=== PATIENT | female | born 1975 | race Caucasian/White ===

== ENCOUNTER 2019-11-09 08:33 | Emergency (ER) | payer BC ==
--- NOTE | 2019-11-09 08:43 | ED ---
GI/ HPI - HPI Summary HPI Summary: 44 year old F arriving via private car to [facility] complains of worsening intermittent blood in stools and intermittent lower abdominal cramping x1 month. She states her stools are more loose and narrow than usual. This morning , patient had bowel movement that had "chunks of blood." She states she usually has lower left sided abdominal cramping when she has bowel movements. No abdominal pain currently. She notes left sided back pain which is chronic. She has had similar symptoms in the past but only occasionally. She has never been seen by GI. She denies fever, chills, nausea/vomiting/diarrhea, constipation. The patient rates the pain 4/10 in severity. Symptoms aggravated by nothing. Symptoms alleviated by nothing. Medications reviewed. Not on anticoagulants. Allergies noted. FHx diverticulosis. - History of Current Complaint Chief Complaint: EDGIBleed Time Seen by Provider: 11/09/19 08:37 Stated Complaint: ABD PAIN , BLOOD IN STOOL Hx Obtained From: Patient Onset/Duration: Started Weeks Ago - 4, Still Present, Worse Since - this morning Timing: Intermittent Current Severity: Moderate Pain Intensity: 4 Pain Characteristics: Cramping Associated Signs and Symptoms: Positive: Negative - fever, chills, nausea/ vomiting/diarrhea, constipation, Abdominal Pain Aggravating Factor(s): Nothing Alleviating Factor(s): Nothing - Allergy/Home Medications Allergies/Adverse Reactions: Allergies Allergy/AdvReac Type Severity Reaction Status Date / Time No Known Allergies Allergy Verified 11/09/19 08:35 Home Medications: Home Medications Clindamycin 1% TOPICAL(NF) [Cleocin-T 1% TOPICAL(NF)] 1 % TOPICAL DAILY [History Confirmed 11/09/19] DOXYcycline CAP(*) [DOXYcycline 100MG CAP(*)] 100 mg PO DAILY 11/09/19 [History Confirmed 11/09/19] Levonorgestrel (Iud) [Mirena IUD] 20 mcg IU ONCE 11/09/19 [History Confirmed ] Sertraline* [Zoloft*] 50 mg PO DAILY 11/09/19 [History Confirmed 11/09/19] clonazePAM TAB(*) [KlonoPIN TAB(*)] 0.5 mg PO BID PRN 11/09/19 [History Confirmed 03/19/20] PMH/Surg Hx/FS Hx/Imm Hx Endocrine/Hematology History: Reports: Other Endocrine/Hematological Disorders - HLD Denies: Hx Diabetes Cardiovascular History: Denies: Hx Hypertension - Cancer History Hx Chemotherapy: No Hx Radiation Therapy: No - Surgical History Surgery Procedure, Year, and Place: wisdom teeth Infectious Disease History: No Infectious Disease History: Denies: Traveled Outside the [place] in Last 30 Days - Family History Known Family History: Positive: Other - diverticulosis; NEG: breast cancer - Social History Alcohol Use: Weekly Substance Use Type: Reports: None Hx Tobacco Use: No Smoking Status (MU): Never Smoked Tobacco Review of Systems Negative: Fever, Chills Positive: Abdominal Pain, Other - blood in stools; NEG: constipation. Negative : Vomiting, Diarrhea, Nausea Positive: Other - chronic left sided back pain All Other Systems Reviewed And Are Negative: Yes Physical Exam - Summary Physical Exam Summary: Constitutional: Well-developed, Well-nourished, Alert. (-) Distressed Skin: Warm, Dry HENT: Normocephalic; Atraumatic Eyes: Conjunctiva normal Neck: Musculoskeletal ROM normal neck. (-) JVD, (-) Stridor, (-) Nuchal rigidity Cardio: Rhythm regular, rate normal, Heart sounds normal; Intact distal pulses; Radial pulses are 2+ and symmetric. (-) Murmur Pulmonary/Chest wall: Effort normal. (-) Respiratory distress, (-) Wheezes, (-) Rales Abd: Soft, (-) tenderness, (-) Distension, (-) Guarding, (-) Rebound Rectal exam chaperoned by Monica RN: No hemorrhoids; soft, brown stool Musculoskeletal: (-) Edema Lymph: (-) Cervical adenopathy Neuro: Alert, Oriented x3 Psych: Mood and affect Normal Triage Information Reviewed: Yes Vital Signs On Initial Exam: Initial Vitals Temp Pulse Resp BP Pulse Ox 98.6 F 100 15 145/98 98 11/09/19 08:35 11/09/19 08:35 11/09/19 08:35 11/09/19 08:35 11/09/19 08:35 Vital Signs Reviewed: Yes Procedures - Sedation Patient Received Moderate/Deep Sedation with Procedure: No Diagnostics - Vital Signs Vital Signs Temp Pulse Resp BP Pulse Ox 11/09/19 08:35 98.6 F 100 15 145/98 98 - Laboratory Result Diagrams: 11/09/19 08:45 11/09/19 08:45 Lab Statement: Any lab studies that have been ordered have been reviewed, and results considered in the medical decision making process. - CT ABD/PEL CT Interpretation Completed By: Radiologist - IMPRESSION: No abnormal masses or fluid collections are noted. IUD appears in place. Mesenteric lymph nodes are noted of uncertain etiology measuring up to 0.9 cm. Appendix is within normal limits. ED physician has reviewed this imaging report. Re-Evaluation - Re-Evaluation First Eval Re-Evaluation Time: 11:45 Change: Improved - d/w patient CT and labs, plan for GI follow up GIGU Course/Dx - Course Course Of Treatment: 44 y/o F p/w LLQ abdominal cramping and bloody stools. - exam benign, labs positive hemmocult. Check CT A/P. Ddx includes inflammatory causes, mass, infectious - Diagnoses Provider Diagnoses: GI bleed Discharge ED - Sign-Out/Discharge Documenting (check all that apply): Patient Departure - Discharge Plan Condition: Stable Disposition: HOME Patient Education Materials: Rectal Bleeding (ED) Referrals: Anant Peres MD [Primary Care Provider] - Charles Goode MD [Medical Doctor] - Additional Instructions: You were seen in the emergency department for in your stool. Your CT scan showed some enlarged lymph nodes otherwise nothing remarkable. Please follow up with GI your primary care doctor for further workup. Please follow up with your primary care doctor in next 2-3 days and return to emergency department for worsening or concerning symptoms. It was a pleasure taking care of you today. - Billing Disposition and Condition Condition: STABLE Disposition: Home - Attestation Statements Document Initiated by Nuhaibe: Yes Documenting Scribe: Anne George Provider For Whom Al is Documenting (Include Credential): Tony Cruz MD Scribe Attestation: I, Anne George, scribed for Tony Cruz MD on 11/09/19 at 1158. Scribe Documentation Reviewed: Yes Provider Attestation: The documentation as recorded by the Anne andersen accurately reflects the service I personally performed and the decisions made by me, Tony Cruz MD Status of Scribe Document: Viewed
[2019-11-09 08:55] LABS: ABS Lymphocytes 1.5 10^3/ul (1.0-4.8); ABS Monocytes 0.4 10^3/ul (0-0.8); ABS Neutrophils 3.3 10^3/ul (1.5-7.7); Eosinophil % 0.9 %; Hematocrit 38 % (35-47); Hemoglobin 12.8 g/dL (12.0-16.0); Lymphocyte % 27.7 %; Mean Corpuscular HGB Conc 34 g/dL (31-36); Mean Corpuscular Hemoglobin 32 pg (27-31); Mean Corpuscular Volume 93 fL (80-97); Mean Platelet Volume 7.1 fL (7.4-10.4); Platelet Count 249 10^3/uL (150-450); Red Blood Count 4.02 10^6 /uL (3.70-4.87); Red Cell Distribution Width 13 % (10-15); White Blood Count 5.2 10^3/uL (3.5-10.8)
[2019-11-09 09:13] LABS: ALT 13 U/L (7-52); AST 15 U/L (13-39); Albumin 3.9 g/dL (3.2-5.2); Albumin/Globulin Ratio 1.7 (1-3); Alkaline Phosphatase 49 U/L (34-104); Anion Gap 7 mmol/L (2-11); BUN/Creatinine Ratio 17.3 (8-20); Blood Urea Nitrogen 13 mg/dL (6-24); CO2 Carbon Dioxide 26 mmol/L (22-32); Calcium 8.5 mg/dL (8.6-10.3); Chloride 105 mmol/L (101-111); EGFR African American 101.1 (>60); EGFR Non-African American 83.6 (>60); Globulin 2.3 g/dL (2-4); Glucose 77 mg/dL (70-100); Potassium 3.7 mmol/L (3.5-5.0); Sodium 138 mmol/L (135-145); Total Protein 6.2 g/dL (6.4-8.9)
[2019-11-09 09:20] LABS: HCG Pregnancy < 0.60 mIU/mL
[2019-11-09] MEDS ORDERED: Iohexol 300* (CONTRAST) 10 ML SDV IV ONE (10:06)
[2019-11-09 12:53] VITALS: BP 133/92
== END 2019-11-09 12:53 | disposition home or self-care (01) ==
LOC: ED 08:33
DX: K92.2 Gastrointestinal hemorrhage, unspecified (principal); E78.5 Hyperlipidemia, unspecified; Z97.5 Presence of (intrauterine) contraceptive device; Z79.899 Other long term (current) drug therapy
CPT/HCPCS: 36415; 74177; 80053; 82270; 84702; 85025; 99283; Q9967